=== PATIENT | male | born 1945 | race Caucasian/White ===

== ENCOUNTER 2018-05-13 11:09 | Emergency (ER) | payer MEDICARE ==
--- NOTE | 2018-05-13 12:19 | ED Physician Documentation ---
PD HPI URI - Stated complaint Stated Complaint: COUGHING/FEVER - Chief complaint Chief Complaint: Resp - History obtained from History obtained from: Patient PD PAST MEDICAL HISTORY - Present Medications Home Medications: Ambulatory Orders Medication Instructions Recorded Confirmed Aspirin [Adult Aspirin Regimen] 1 tab PO DAILY 05/13/18 05/13/18 Atenolol 1 tab PO BID 05/13/18 05/13/18 Beclomethasone Dipropionate 1 spray INH BID 05/13/18 05/13/18 [Beconase Aq] Glucosamine HCl/Chondroitin [place] 1 tab PO DAILY 05/13/18 05/13/18 [Endur-Flex Sr Tablet] Losartan [Cozaar] 0.5 tab PO DAILY 05/13/18 05/13/18 Multivitamin-Min/Iron/FA/Vit K 1 tab PO DAILY 05/13/18 05/13/18 [Multi-Day Plus Minerals Tablet] Omeprazole [PriLOSEC] 1 cap PO BID 05/13/18 05/13/18 Tamsulosin [Flomax] 1 tab PO DAILY 05/13/18 05/13/18 Triamterene [Dyrenium] 1 tab PO DAILY 05/13/18 05/13/18 clonazePAM [Clonazepam] 1 tab PO DAILY 05/13/18 05/13/18 glipiZIDE [Glipizide] 2 tab PO BID 05/13/18 05/13/18 metFORMIN [Glucophage] 2 tab PO BID 05/13/18 05/13/18 - Allergies Allergies/Adverse Reactions: Allergies Allergy/AdvReac Type Severity Reaction Status Date / Time ROMI Inhibitors Allergy Respiratory Verified 05/13/18 11:22 Results - Vitals Vitals: Vital Signs - 24 hr 05/13/18 11:19 Temperature 36.6 C Heart Rate 96 Respiratory 16 Rate Blood Pressure 123/56 L O2 Saturation 99 Oxygen O2 Source Room air PD MEDICAL DECISION MAKING - Sepsis Event Vital Signs: Vital Signs - 24 hr 05/13/18 11:19 Temperature 36.6 C Heart Rate 96 Respiratory 16 Rate Blood Pressure 123/56 L O2 Saturation 99 Oxygen O2 Source Room air
[2018-05-13] MEDS ORDERED: ALBUMIN 25% 12.5 GM/50 ML VIAL IV STA (12:43)
[2018-05-13] MEDS ORDERED: FUROSEMIDE 20 MG/2 ML VIAL IVP STA (12:44)
[2018-05-13] MEDS ORDERED: SODIUM CHLORIDE 0.9% 1,000 ML IV ONE (12:44)
--- NOTE | 2018-05-13 12:45 | ED Physician Documentation ---
PD HPI DYSPNEA - Stated complaint Stated Complaint: COUGHING/FEVER - Chief complaint Chief Complaint: Resp - History obtained from History obtained from: Patient, Family () - History of Present Illness Timing - onset: How many days ago (has had some cough and feeling feverish the past few days. Has had increasing abd girth and pressure for few weeks. Has history of liver CA with some compression of portal vein, leading to ascites. He states 30-40 lb weight gain the past month. His Oncologist set him up for paracentesis outpatient at [facility] last week, but the Radiologist did not feel there was a good window on U/S, so did not do a paracentesis. Patient says he has gotten more tense abd pressure and dyspnea this past week with more fluid gain. He called his Oncologist office and nurse referred him to ER. They are still awaiting the Oncologist to return call.) Timing - onset during: Light activity Timing - duration: Days Timing - details: Gradual onset, Still present Inciting event(s): URI (has some cough and feeling feverish/achy). No: Out of meds Improved by: Rest, Sitting up Worsened by: Exertion, Laying flat, Coughing Associated symptoms: Fever (subjective at times), Cough (nonproductive), Wheezing, Bilateral edema (for the past month). No: Hemoptysis, Chest pain / discomfort Similar symptoms before: Diagnosis (liver CA with compression portal vein, per patient.) Recently seen: Clinic (Oncologist last week. Had labs and had transfusion 2 units blood.) Review of Systems Constitutional: reports: Fever, Myalgias. denies: Chills Nose: denies: Rhinorrhea / runny nose, Congestion Throat: denies: Sore throat Cardiac: reports: Pedal edema. denies: Palpitations, Calf pain Respiratory: reports: Dyspnea, Cough, Wheezing. denies: Hemoptysis GI: reports: Abdominal Pain, Abdominal Swelling. denies: Vomiting, Constipation, Diarrhea : reports: Frequency. denies: Dysuria Skin: denies: Rash, Lesions PD PAST MEDICAL HISTORY - Past Medical History Cardiovascular: Hypertension Respiratory: Asthma (has MDI that he uses infrequently) Neuro: None Endocrine/Autoimmune: None GI: Other (recent Dx liver CA) - Present Medications Home Medications: Ambulatory Orders Medication Instructions Recorded Confirmed Aspirin [Adult Aspirin Regimen] 1 tab PO DAILY 05/13/18 05/13/18 Atenolol 1 tab PO BID 05/13/18 05/13/18 Beclomethasone Dipropionate 1 spray INH BID 05/13/18 05/13/18 [Beconase Aq] Glucosamine HCl/Chondroitin [place] 1 tab PO DAILY 05/13/18 05/13/18 [Endur-Flex Sr Tablet] Losartan [Cozaar] 0.5 tab PO DAILY 05/13/18 05/13/18 Multivitamin-Min/Iron/FA/Vit K 1 tab PO DAILY 05/13/18 05/13/18 [Multi-Day Plus Minerals Tablet] Omeprazole [PriLOSEC] 1 cap PO BID 05/13/18 05/13/18 Spironolactone 25 mg PO DAILY #10 tablet 05/13/18 Tamsulosin [Flomax] 1 tab PO DAILY 05/13/18 05/13/18 Triamterene [Dyrenium] 1 tab PO DAILY 05/13/18 05/13/18 clonazePAM [Clonazepam] 1 tab PO DAILY 05/13/18 05/13/18 glipiZIDE [Glipizide] 2 tab PO BID 05/13/18 05/13/18 metFORMIN [Glucophage] 2 tab PO BID 05/13/18 05/13/18 - Allergies Allergies/Adverse Reactions: Allergies Allergy/AdvReac Type Severity Reaction Status Date / Time ROMI Inhibitors Allergy Respiratory Verified 05/13/18 11:22 PD ED PE NORMAL - Vitals Vital signs reviewed: Yes - General General: Alert and oriented X 3, No acute distress, Well developed/nourished - HEENT HEENT: Ears normal, Pharynx benign - Neck Neck: Supple, no meningeal sign, No adenopathy - Cardiac Cardiac: RRR, No murmur - Respiratory Respiratory: No respiratory distress. No: Clear bilaterally (no wet sounds. Does have some end exp wheezing diffusely. ) - Abdomen Abdomen: No organomegaly, Other (tense ascites with dullness to percussion. ). No: Normal bowel sounds (decreased) - Male Male : Deferred - Rectal Rectal: Deferred - Back Back: No CVA TTP - Derm Derm: Normal color, Warm and dry - Extremities Extremities: No tenderness to palpate, Normal ROM s pain, No calf tenderness / cord, Other (2+ edema in both legs) - Neuro Neuro: Alert and oriented X 3, No motor deficit, Normal speech Eye Opening: Spontaneous Motor: Obeys Commands Verbal: Oriented GCS Score: 15 Results - Vitals Vitals: Vital Signs - 24 hr 05/13/18 11:19 Temperature 36.6 C Heart Rate 96 Respiratory 16 Rate Blood Pressure 123/56 L O2 Saturation 99 Oxygen O2 Source Room air Procedures - Paracentesis Preparation: Consent obtained, Ultrasound guidance, Sterile prep and drape, Local anesthesia Location: LLQ Technique: Z-tract, Catheter over needle Fluid: Clear, Sent for cell count, Sent for culture, Volume - enter cc (900) Aftercare: No complications (just the catheter did not drain well, seemed to be sucking on omentum or such, so did not get consistent drainage.), Patient tolerated well, Dressing applied PD MEDICAL DECISION MAKING - ED course Complexity details: re-evaluated patient (he is feeling improved breathing, partly with neb treatment. Also felt better with even some of the ascites drained. I was hoping for several liters, but the catheter was not draining well, so only got about 900 ml. He still felt better with it. He has call out to his Oncologist office and is waiting return call. ), considered differential (having some cough and wheezing, so I think some is asthma-like. Having dyspnea from the fullness of his abd as well. ), d/w patient - Sepsis Event Vital Signs: Vital Signs - 24 hr 05/13/18 11:19 Temperature 36.6 C Heart Rate 96 Respiratory 16 Rate Blood Pressure 123/56 L O2 Saturation 99 Oxygen O2 Source Room air Departure - Departure Disposition: 01 Home, Self Care Clinical Impression: Ascites of liver Dyspnea Qualifiers: Dyspnea type: shortness of breath Qualified Code(s): R06.02 - Shortness of breath Condition: Stable Record reviewed to determine appropriate education?: Yes Instructions: ED Ascites Follow-Up: Mita Ramirez MD [Primary Care Provider] - Prescriptions: Spironolactone 25 mg PO DAILY #10 tablet Comments: Stay hydrated. Continue usual medications. Add spironolactone diuretic daily for the next week. Contact your oncologist (under you are expecting a call back from him soon). Arrange a follow-up appointment with him and see if they can arrange a repeat paracentesis in the near future as this will continue to accumulate. Discharge Date/Time: 05/13/18 16:26
[2018-05-13 12:54] LABS: BASOPHILS % (AUTO) 0.2 %; EOSINOPHILS # (AUTO) 0.5 10^3/uL (0.0-0.7); EOSINOPHILS % (AUTO) 10.6 %; HGB - HEMOGLOBIN 9.7 g/dL (14.0-18.0); LYMPHOCYTES # (AUTO) 0.4 10^3/uL (1.5-3.5); LYMPHOCYTES % (AUTO) 8.4 %; MEAN CORPUSCULAR HEMOGLOBIN 29.7 pg (27.0-31.0); MEAN CORPUSCULAR HGB CONC 33.5 g/dL (32.0-36.0); MEAN CORPUSCULAR VOLUME 88.9 fL (80.0-94.0); MEAN PLATELET VOLUME 9.5 fL (7.4-11.4); MONOCYTES # (AUTO) 0.3 10^3/uL (0.0-1.0); MONOCYTES % (AUTO) 6.9 %; NEUTROPHILS # (AUTO) 3.1 10^3/uL (1.5-6.6); NEUTROPHILS % (AUTO) 73.9 %; PLT - PLATELET COUNT 123 10^3/uL (130-450); RED BLOOD COUNT 3.25 10^6/uL (4.70-6.10); WHITE BLOOD COUNT 4.3 x10^3/uL (4.8-10.8)
[2018-05-13 13:17] LABS: ALBUMIN 3.1 g/dL (3.2-5.5); ALBUMIN/GLOBULIN RATIO 1.1 (1.0-2.2); BILIRUBIN,TOTAL 0.9 mg/dL (0.2-1.0); CALCIUM 8.5 mg/dL (8.5-10.3); MAGNESIUM 2.1 mg/dL (1.7-2.8)
[2018-05-13] MEDS ORDERED: ALBUTEROL NEB 2.5 MG/3 ML INH STA (14:21)
--- NOTE | 2018-05-13 14:27 | XRAY Report ---
Reason: chest pain left sided Procedure Date: 05/13/2018 Accession Number: [id number] / [id number] Procedure: XR - Chest 2 View X-Ray CPT Code: 93213 FULL RESULT: EXAM: CHEST RADIOGRAPHY EXAM DATE: 05/13/2018 02:00 PM. CLINICAL HISTORY: Chest pain, left sided. COMPARISON: None. TECHNIQUE: 2 views. FINDINGS: Lungs/Pleura: No focal opacities evident. No pleural effusion. No pneumothorax. Normal volumes. Mediastinum: Heart and mediastinal contours are unremarkable. Other: None. IMPRESSION: No acute cardiopulmonary abnormality. [facility]
[2018-05-13 14:35] LABS: BILIRUBIN,URINE NEGATIVE (NEGATIVE); GLUCOSE, URINE (UA) NEGATIVE (NEGATIVE); KETONES,URINE (UA) NEGATIVE (NEGATIVE); LEUKOCYTE ESTERASE, URINE NEGATIVE (NEGATIVE); NITRITE,URINE NEGATIVE (NEGATIVE); OCCULT BLOOD,URINE NEGATIVE (NEGATIVE); PH,URINE 5.5 PH (5.0-7.5); PROTEIN,URINE NEGATIVE (NEGATIVE); UROBILINOGEN,URINE 0.2 (NORMAL) E.U./dL (NORMAL)
[2018-05-13 14:36] LABS: CLARITY,URINE CLEAR (CLEAR)
[2018-05-13] MEDS ORDERED: guaiFENesin/CODEINE 5 ML UDC PO STA (15:00)
[2018-05-13 16:14] VITALS: BP 120/54
[2018-05-13 16:48] LABS: CC,BF RBC < 1000 /mm^3
[2018-05-13 16:49] LABS: BF COLOR STRAW; BF SOURCE PERITONEAL
[2018-05-13 17:09] LABS: LYMPHOCYTES %,BODY FLUID 62
[2018-05-13 17:10] LABS: MESOTHELIAL %, BF 10 %; MONOCYTES %,BODY FLUID 26 %
== END 2018-05-13 16:26 | disposition home or self-care (01) ==
LOC: ED 11:09
DX: R18.8 Other ascites (principal); R06.02 Shortness of breath; C22.8 Malignant neoplasm of liver, primary, unspecified as to type; I10 Essential (primary) hypertension
CPT/HCPCS: 36415; 49082; 71046; 80053; 81003; 83690; 83735; 83880; 85025; 87070; 87205; 89051; 94640; 96365; 96375; 99283; 99284; A9270; P9047; 81001; 87086